=== PATIENT | female | born 1985 | race African-American/Black ===

== ENCOUNTER 2019-10-25 12:36 | Emergency (ER) | payer MEDICAID ==
[~2019-10-25] VITALS: Ht 172.7 cm; Wt 62.6 kg
[2019-10-25 13:04] VITALS: BP 126/75
[2019-10-25 13:25] LABS: BASOPHILS % (AUTO) 0.7 % (0.0-2.0); EOSINOPHILS % (AUTO) 1.1 % (0.0-3.0); HEMATOCRIT 40.4 % (37.0-47.0); HEMOGLOBIN 13.8 G/DL (12.0-16.0); LYMPHOCYTES % (AUTO) 33.1 % (20.0-45.0); MEAN CORPUSCULAR VOLUME 90 FL (80-99); MONOCYTES % (AUTO) 8.6 % (1.0-10.0); NEUTROPHILS % (AUTO) 56.5 % (45.0-75.0); PLATELET COUNT 294 K/UL (150-450); RED BLOOD COUNT 4.47 M/UL (4.20-5.40); RED CELL DISTRIBUTION WIDTH 10.5 % (11.6-14.8); WHITE BLOOD COUNT 9.6 K/UL (4.8-10.8)
[2019-10-25 13:33] LABS: PARTIAL THROMBOPLASTIN TIME 24 SEC (23-33)
[2019-10-25 13:37] LABS: ANION GAP 6 mmol/L (5-15); BLOOD UREA NITROGEN 11 mg/dL (7-18); CALCIUM 9.2 MG/DL (8.5-10.1); CARBON DIOXIDE 29 MMOL/L (21-32); CHLORIDE 102 MMOL/L (98-107); CREATININE 0.7 MG/DL (0.55-1.30); POTASSIUM 3.7 MMOL/L (3.5-5.1); SODIUM 137 MMOL/L (136-145)
[2019-10-25 13:48] LABS: ALANINE AMINOTRANSFERASE 21 U/L (12-78); ALBUMIN 3.9 G/DL (3.4-5.0); ALBUMIN/GLOBULIN RATIO 1.4 (1.0-2.7); ALKALINE PHOSPHATASE 45 U/L (46-116); ASPARTATE AMINO TRANSFERASE 15 U/L (15-37); BILIRUBIN,TOTAL 0.7 MG/DL (0.2-1.0)
--- NOTE | 2019-10-25 14:08 | Emergency Room Report ---
History of Present Illness General Chief Complaint: Chest Pain Source: Patient Present Illness HPI 34-year-old female with no significant past medical history here complaining of 1-1/2-week of an intermittent chest pain upon laying down. Patient denies any shortness of breath, headache and dizziness. Denies pain radiation to arm and jaw. Reports that the pain occurs when she lays down and feels like burping coming up in her mouth. Reports that she just drink a lot of coffee however denies eating spicy and acidic food. Reports that she runs every day and lifts heavy weights every day. Describes the pain as if someone is pressing from the back of her chest. Denies fall or injury. Denies abdominal pain, nausea vomiting, tobacco smoke, alcohol intake. Does report that she occasionally smokes marijuana. Denies any tearing sensation in chest. Denies lower extremity edema, calf tenderness, recent surgery below the pelvis, cancer history, or taking any oral contraceptives. Denies sitting for prolonged hours in the past 3 months, denies URI symptoms, fever/chills. Allergies: Coded Allergies: PENICILLINS (Verified Allergy, Unknown, 10/25/19) Patient History Past Medical History: see triage record Past Surgical History: none Pertinent Family History: none Social History: Reports: drug use - marijuana Now: No Immunizations: UTD Reviewed Nursing Documentation: PMH: Agreed; PSxH: Agreed Nursing Documentation-PMH Past Medical History: No Stated History Review of Systems All Other Systems: negative except mentioned in HPI Physical Exam Vital Signs Date Time Temp Pulse Resp B/P (MAP) Pulse Ox O2 Delivery O2 Flow Rate FiO2 10/25/19 12:39 97.9 76 16 141/81 (101) 99 Room Air Sp02 EP Interpretation: reviewed, normal General Appearance: no apparent distress, alert, GCS 15, non-toxic Head: normocephalic, atraumatic Eyes: bilateral eye normal inspection, bilateral eye PERRL ENT: hearing grossly normal, normal pharynx, no angioedema, normal voice Neck: full range of motion, supple/symm/no masses Respiratory: chest non-tender, lungs clear, normal breath sounds, no rhonchi, no wheezing, speaking full sentences Cardiovascular #1: regular rate, rhythm, no edema, no murmur, normal capillary refill Gastrointestinal: normal bowel sounds, non tender, soft, non-distended, no guarding, no rebound Rectal: deferred Genitourinary: no CVA tenderness Musculoskeletal: back normal, normal range of motion, no calf tenderness, gait/ station normal, non-tender Neurologic: alert, motor strength/tone normal, oriented x3, sensory intact, responsive, speech normal Psychiatric: judgement/insight normal, memory normal, mood/affect normal, no suicidal/homicidal ideation Skin: no rash Lymphatic: no adenopathy Medical Decision Making PA Attestation All diagnoses and treatment plans were reviewed and discussed with my supervising physician Dr. Fowler Diagnostic Impression: Primary Impression: Chest pain, unspecified Additional Impressions: GERD (gastroesophageal reflux disease) Chest wall muscle strain ER Course 34-year-old female with no significant past medical history here complaining of 1-1/2-week of an intermittent chest pain upon laying down. Patient denies any shortness of breath, headache and dizziness. Denies pain radiation to arm and jaw. Reports that the pain occurs when she lays down and feels like burping coming up in her mouth. Reports that she just drink a lot of coffee however denies eating spicy and acidic food. Reports that she runs every day and lifts heavy weights every day. Describes the pain as if someone is pressing from the back of her chest. Denies fall or injury. Denies abdominal pain, nausea vomiting, tobacco smoke, alcohol intake. Does report that she occasionally smokes marijuana. Denies any tearing sensation in chest. Denies lower extremity edema, calf tenderness, recent surgery below the pelvis, cancer history, or taking any oral contraceptives. Denies sitting for prolonged hours in the past 3 months, denies URI symptoms, fever/chills. Ddx considered but are not limited to: NC, Angina, COPD, GERD, muscle strain, pericarditis Vital signs: are WNL, pt. is afebrile H&PE are most consistent with unspecified chest pain, GERD, chest wall muscle strain, possible pericarditis ORDERS: EKG, Chest XR, cardiac labs(troponin, CBC, CMP, BNP), Motrin, Tylenol, omeprazole ED INTERVENTIONS: NS bolus, DISCHARGE: At this time pt. is stable for d/c to home. Will provide printed patient care instructions, and any necessary prescriptions. Care plan and follow up instructions have been discussed with the patient prior to discharge. Patient to follow-up with her primary care provider, follow-up with drying room supervisor may be needed. Avoid strenuous physical activity, avoid eating spicy and acidic food, if worsening symptoms return to the emergency room. At this time no CT scan of the chest is needed as patient has not presented with symptoms or lab results that may be suggesting pulmonary embolism versus aortic dissection. EKG Diagnostic Results Rate: normal Rhythm: NSR ST Segments: no acute changes Other Impression No acute ST changes Chest X-Ray Diagnostic Results Chest X-Ray Diagnostic Results : Chest X-Ray Ordered: Yes # of Views/Limited/Complete: 1 View Indication: Chest Pain EP Interpretation: Yes DELFIN Xray: Interpretation reviewed, by supervising MD, and agrees with findings. Interpretation: no consolidation, no effusion, no pneumothorax, no acute cardiopulmonary disease Impression: No acute disease Electronically Signed by: Colleen Poe PA-C Last Vital Signs Date Time Temp Pulse Resp B/P (MAP) Pulse Ox O2 Delivery O2 Flow Rate FiO2 10/25/19 13:04 97.9 75 16 126/75 99 Room Air Disposition: HOME, SELF-CARE Condition: Stable Scripts Ibuprofen* (MOTRIN*) 600 Mg Tablet 600 MG ORAL Q6H PRN for For Pain, #30 TAB Prov: Colleen Gan 10/25/19 Acetaminophen* (TYLENOL EXTRA STRENGTH*) 500 Mg Tablet 500 MG ORAL Q8H PRN for Prn Headache/Temp > 101, #30 TAB 0 Refills Prov: Colleen Gan 10/25/19 Omeprazole (OMEPRAZOLE) 20 Mg Tablet.dr 20 MG ORAL DAILY, #20 TAB Prov: Colleen Gan 10/25/19 Referrals: NOT CHOSEN IPA/,REFERRING (PCP) Patient Instructions: Food Choices for Gastroesophageal Reflux Disease, Adult, Heartburn, Nonspecific Chest Pain Additional Instructions: Follow-up with your primary care provider, referral to drying room supervisor may be needed. At this time no acute conditions were found to be causing your chest pain. Increase oral hydration if worsening symptoms return to the emergency room.possible pericarditis. Colleen Gan Oct 25, 2019 14:08
[2019-10-25] MEDS ORDERED: IBUPROFEN600 MG ORAL (14:16)
[2019-10-25] MEDS ORDERED: TYLENOL EXTRA500 MG ORAL (14:16)
[2019-10-25] MEDS ORDERED: OMEPRAZOLE20 M3 ORAL (14:16)
[2019-10-25 14:25] VITALS: BP 110/68
--- NOTE | 2019-10-25 16:44 | Diagnostic Imaging Report ---
Indication: Chest pain Technique: One view of the chest Comparison: none Findings: Lungs and pleural spaces are clear. Heart size is normal. Impression: No acute process
== END 2019-10-25 14:25 | disposition home or self-care (01) ==
LOC: EMR 13:00
DX: R07.9 Chest pain, unspecified (principal); K21.9 Gastro-esophageal reflux disease without esophagitis; S29.011A Strain of muscle and tendon of front wall of thorax, initial encounter; X58.XXXA Exposure to other specified factors, initial encounter; Y93.9 Activity, unspecified; Y92.9 Unspecified place or not applicable; Z88.0 Allergy status to penicillin
CPT/HCPCS: 36415; 71045; 80053; 80307; 81025; 83880; 84484; 85025; 85379; 85610; 85730; 93005; 96361; 96374; S0028; Z7502; 99284